=== PATIENT | female | born 1940 | race Two or more races ===

== ENCOUNTER 2018-09-07 14:07 | Emergency (ER) | payer OTHER ==
[~2018-09-07] VITALS: Ht 160 cm; Wt 69.4 kg
[2018-09-07] MEDS ORDERED: GLUCOPHAGE XR500 MG PO (14:33)
[2018-09-07] MEDS ORDERED: LIPITOR20 MG PO (14:34)
[2018-09-07] MEDS ORDERED: TOPROL XL25 MG PO (14:34)
[2018-09-07] MEDS ORDERED: PLAVIX75 MG PO (14:34)
== END 2018-09-07 16:27 | disposition home or self-care (01) ==
LOC: ER 14:07
DX: B07.8 Other viral warts (principal)

== ENCOUNTER 2020-11-23 13:20 | Emergency (ER) | payer OTHER ==
[~2020-11-23] VITALS: Ht 157.5 cm; Wt 70.8 kg
[~2020-11-23 13:20] MED LIST: GLUCOPHAGE XR500 MG PO; LIPITOR20 MG PO; PLAVIX75 MG PO; TOPROL XL25 MG PO
== END 2020-11-23 18:21 | disposition home or self-care (01) ==
LOC: ER 13:20
DX: S90.121A Contusion of right lesser toe(s) without damage to nail, initial encounter (principal); W22.8XXA Striking against or struck by other objects, initial encounter; Y93.89 Activity, other specified; Y92.018 Other place in single-family (private) house as the place of occurrence of the external cause; Y99.8 Other external cause status

== ENCOUNTER → 2020-12-03 13:44 | Outpatient (CLI) | payer OTHER | END | disposition home or self-care (01) | LOC: NUCLEAR 13:44 | PROVIDERS: ATTEND General Practice | DX: M81.0 Age-related osteoporosis without current pathological fracture (principal) ==

== ENCOUNTER → 2020-12-03 | Outpatient (CLI) | payer OTHER | END | disposition home or self-care (01) | LOC: RAD 13:20 | PROVIDERS: ATTEND General Practice | DX: M54.9 Dorsalgia, unspecified (principal) ==

== ENCOUNTER → 2021-10-05 08:00 | Outpatient (CLI) | payer OTHER | END | disposition home or self-care (01) | LOC: PPH VACUNA 08:00 | PROVIDERS: ATTEND Emergency Medicine Pediatric Emergency Medicine | DX: Z23 Encounter for immunization (principal) ==

== ENCOUNTER 2021-12-21 15:43 | Outpatient (CLI) | payer OTHER | END 2021-12-21 15:44 | disposition home or self-care (01) | LOC: RAD 15:43 | PROVIDERS: ATTEND Physical Medicine & Rehabilitation | DX: M54.2 Cervicalgia (principal); M54.50 Low back pain, unspecified; R10.2 Pelvic and perineal pain ==

== ENCOUNTER 2022-01-20 14:09 | Emergency (ER) | payer OTHER ==
[~2022-01-20] VITALS: Ht 157.5 cm; Wt 72.6 kg
[2022-01-20] MEDS ORDERED: XIGDUO XR 10 M1 EAC1 PO (14:33)
== END 2022-01-20 15:41 | disposition home or self-care (01) ==
LOC: ER 14:09
DX: S60.411A Abrasion of left index finger, initial encounter (principal); W26.0XXA Contact with knife, initial encounter; Y93.G3 Activity, cooking and baking; Y92.010 Kitchen of single-family (private) house as the place of occurrence of the external cause; Z88.6 Allergy status to analgesic agent; Z88.0 Allergy status to penicillin

== ENCOUNTER 2022-04-05 12:16 | Outpatient (CLI) | payer OTHER ==
[~2022-04-05 12:16] MED LIST changes: +XIGDUO XR 10 M1 EAC1 PO
== END 2022-04-05 12:26 | disposition home or self-care (01) ==
LOC: PPH VACUNA 12:16
PROVIDERS: ATTEND Emergency Medicine Pediatric Emergency Medicine
DX: Z23 Encounter for immunization (principal)

== ENCOUNTER 2022-10-11 13:02 | Outpatient (CLI) | payer OTHER | END 2022-10-11 13:03 | disposition home or self-care (01) | LOC: NUCLEAR 13:02 | PROVIDERS: ATTEND Family Medicine | DX: M81.0 Age-related osteoporosis without current pathological fracture (principal) ==

== ENCOUNTER 2022-12-03 16:50 | Emergency (ER) | payer OTHER ==
[~2022-12-03] VITALS: Ht 157.5 cm; Wt 67.1 kg
== END 2022-12-03 22:18 | disposition home or self-care (01) ==
LOC: ER 16:50
DX: S91.311A Laceration without foreign body, right foot, initial encounter (principal); E11.9 Type 2 diabetes mellitus without complications; Z79.84 Long term (current) use of oral hypoglycemic drugs; Z88.0 Allergy status to penicillin; Z88.6 Allergy status to analgesic agent

== ENCOUNTER 2024-06-25 12:11 | Outpatient (CLI) | payer OTHER | END 2024-06-25 12:24 | disposition home or self-care (01) | LOC: RAD 12:11 | DX: M99.01 Segmental and somatic dysfunction of cervical region (principal); M99.02 Segmental and somatic dysfunction of thoracic region ==

== ENCOUNTER → 2024-11-09 | Emergency (ER) | payer OTHER ==
[~2024-11-09] VITALS: Ht 157.5 cm; Wt 62.6 kg
[~2024-11-09] MED LIST changes: +FAMOTIDINE/PF 20 MG/2 ML VIAL IV PUSH STA; +FAMOtidine 200mg/20ml VIAL ONE
== END | disposition home or self-care (01) ==
LOC: ER 09:29
DX: K29.70 Gastritis, unspecified, without bleeding (principal); I10 Essential (primary) hypertension; E11.9 Type 2 diabetes mellitus without complications; Z79.84 Long term (current) use of oral hypoglycemic drugs; Z88.0 Allergy status to penicillin; Z88.6 Allergy status to analgesic agent
CPT/HCPCS: 96365; 99282; J3490

== ENCOUNTER 2024-11-22 08:02 | Outpatient (CLI) | payer OTHER ==
[~2024-11-22 08:02] MED LIST changes: -FAMOTIDINE/PF 20 MG/2 ML VIAL IV PUSH STA; -FAMOtidine 200mg/20ml VIAL ONE
== END 2024-11-22 08:05 | disposition home or self-care (01) ==
LOC: SONOGRAMA 08:02
PROVIDERS: ATTEND Internal Medicine Gastroenterology
DX: K57.30 Diverticulosis of large intestine without perforation or abscess without bleeding (principal); R12 Heartburn

== ENCOUNTER 2024-12-03 07:07 | Outpatient (CLI) | payer OTHER | END 2024-12-03 07:08 | disposition home or self-care (01) | LOC: NUCLEAR 07:07 | PROVIDERS: ATTEND Internal Medicine | DX: I20.9 Angina pectoris, unspecified (principal) | CPT/HCPCS: 78452; 93017; A9500; J0153 ==